=== PATIENT | female | born 1985 ===

== ENCOUNTER 2024-08-21 12:02 | Emergency (ER) | payer OTHER, SELFPAY ==
[2024-08-21 12:51] VITALS: BP 111/64; PULSE 79; RESP 18; TEMP 36.7; O2SAT 100
--- NOTE | 2024-08-21 13:01 | ED_ITS ---
HPI - URI/Sore Throat General Chief Complaint: Upper Respiratory Infection Stated Complaint: sore throat / tight chest / headache Time Seen by Provider: 08/21/24 13:01 Source: patient, RN notes reviewed and old records reviewed Mode of arrival: ambulatory Limitations: no limitations History of Present Illness HPI Narrative: 39-year-old female presents to the [facility] with symptoms that started last night, exposure to flu a. Patient reports his sore throat, headache, body aches, cough, chest tightness with coughing. Denies fevers. Treatments prior to arrival: cold medicine Related Data Home Medications ?Medication ?Instructions ?Recorded ?Confirmed ?Last Taken ?Type verapamil 80 mg tablet mg 08/21/24 Unknown History Allergies Allergy/AdvReac Type Severity Reaction Status Date / Time No Known Allergies Allergy Verified 08/21/24 12:40 Review of Systems Review of Systems: All systems reviewed & are unremarkable except as noted in HPI and below Constitutional: Constitutional: Reports as per HPI ENT: Reports as per HPI Cardiovascular: Cardiovascular: Reports no additional cardiovascular complaints, Denies chest pain and Denies dyspnea Respiratory: Respiratory: Reports as per HPI, Denies chest congestion, Reports cough and Denies dyspnea Musculoskeletal: Musculoskeletal: Reports no additional musculoskeletal complaints Integumentary/Breasts: Skin/Breast: Reports system reviewed and no additional complaints, except as docu PMFSH Comments At the time of my signature, I reviewed and agree with the nursing past medical, surgical, social, and family history. There is no relevant family history pertinent to the patient complaint. Exam Const: General: cooperative, no acute distress, well developed, alert, tired appearing, uncomfortable and well nourished Nutritional Appearance: well nourished Orientation/consciousness: patient oriented x3 Limitations: no limitations HENMT: Head: normal to inspection Ears: hearing grossly normal bilaterally, external ears normal, TM's normal bilaterally, EAC's normal, mastoids normal and no periauricular adenopathy Mouth: Yes Normal oral and palatal mucosa present, Yes lip normal, Yes tongue normal and Yes moist mucous membranes Throat: posterior oropharynx normal, uvula midline and no uvular edema Eyes: General: appearance normal, both eyes and all related structures Alignment and Position: alignment normal Neck: Neck: normal visual inspection, full ROM, no lymphadenopathy and no meningeal signs Chest: Chest palpation & inspection: normal inspection of the chest Resp: Effort & Inspection: normal respiratory effort and able to speak in complete sentences Auscultation: clear to auscultation bilaterally, no crackles, no rales, no rhonchi and no wheezes Cardio: Rate: regular rate Skin: General skin exam: normal color and no rashes or lesions noted Neuro: General: patient oriented x3, gait normal, moves all extremities and no meningeal signs Cognition (Neuro): normal cognition Speech: normal speech Gait exam (Neuro): Normal gait present Extrem: General: normal to inspection, full ROM, capillary refill normal and normal gait Psych: Appearance: grossly normal and well kempt Mental Status: mental status grossly normal Speech and movement: Normal speech and movement present and Clear speech present Affect: normal affect Attitude: cooperative Course Course Level of Care: Express Care Visit Vital Signs Vital signs: Vital Signs Temperature 98.0 F 08/21/24 12:51 Pulse Rate 79 08/21/24 12:51 Respiratory Rate 18 08/21/24 12:51 Blood Pressure 111/64 08/21/24 12:51 Pulse Oximetry 100 08/21/24 12:51 Oxygen Delivery Room Air 08/21/24 12:51 Temperature 98.0 F 08/21/24 12:51 Pulse Rate 79 08/21/24 12:51 Respiratory Rate 18 08/21/24 12:51 Blood Pressure 111/64 08/21/24 12:51 Pulse Oximetry 100 08/21/24 12:51 Oxygen Delivery Room Air 08/21/24 12:51 Reviewed MDM - URI/Sore Throat MDM Narrative Medical decision making narrative: Patient sitting in exam room. Nontoxic, vitals stable. Patient presents with less than 24 hours of URI symptoms. Flu, COVID, strep are negative in clinic. Due to flu a exposure as well as surge of a community flu influenza a. As well as patient's exam is most consistent with influenza A. Testing may have been too soon. Patient is appropriate for outpatient treatment and follow-up Discharge instructions reviewed with patient, as well as provided in writing per nursing staff. The instructions also include specific and strict return/GO TO THE ER as well as f/u information. All questions have been answered, and the patient deny any further questions with discharge and discharge plan. Some parts of this dictation were generated by voice recognition software and may contain typographical and/or grammatical inaccuracies. Differential Diagnosis Differential diagnosis: Likely upper respiratory infection, sinusitis, viral infection and influenza Lab Data Labs: Lab Results 08/21/24 08/21/24 Range/Units 13:04 13:17 POC Influenza A Ag Negative (Negative) POC Influenza B Ag Negative (Negative) POC SARS CoV-2 Ag Negative (Negative) POC Grp A Strep Screen Negative (Negative) Reviewed Critical Care Time Critical Care Time Critical Care Time: No Discharge Plan Discharge Clinical Impression: Influenza-like illness, Exposure to influenza Patient Disposition: Home, Self-Care Condition: Stable Instructions: Antibiotic Form, Influenza (ED) Additional Instructions: Patient Your rapid strep swab was negative today at [facility]. A throat culture will be sent to the laboratory for further testing. If the test is positive, you will receive a phone call within 48 hours and an appropriate antibiotic will be initiated at that time. Your rapid COVID test were negative Your rapid flu test was negative Your symptoms are likely due to a viral illness, which is not treated with antibiotics. Typically viral infections last 7-10 days, can linger for couple of weeks. It is very important to treat your symptoms. Drink plenty of water, Gatorade, Pedialyte, ice pops or Jell-O. -Alternate Tylenol and Motrin per package directions for fever or pain. You can alternate every 4 hours -Antihistamine medication such as Zyrtec/Claritin/Alisson during the day can help improve symptoms. -doing daily nasal irrigations can help relieve pressure your sinuses. Things like a Neti pot -Use Flonase twice a day for 5 days then daily to help reduce the inflammation and dry up your sinuses. -You can also use Mucinex. Be sure to drink plenty of water with this medication at least 8 ounces with every dose and it is important to drink 8 to 10 glasses of water per day. Water is a natural decongestant -Eat and drink things that are easy to swallow, like tea or soup, or popsicles. -Oral rinses such as: Salt water gargles and/or may use topical anesthetic (eg. Chloraseptic spray) or lozenges to relieve dryness or throat pain). -Frequent hand washing or hand communications billing analyst is one of the best ways to prevent spread of infection. -Using a vaporizer or humidifier at night will also help thin secretions and help with coughing up phlegm. -Follow up with primary care provider in 7-10 days if condition is not improving - For new or worsening symptoms go directly to the nearest ER Patient Language: Citizen Of [place] Prescriptions: No Action verapamil 80 mg tablet Follow-up/Referrals: Mallorie,JENNIFER Clark [Primary Care Provider] - 2 Weeks ([facility] follow-up) Stand Alone Forms: Work/School Release IP Time of Disposition: 13:18
[2024-08-21 13:06] LABS: EDCOVIDSCREEN Negative (Negative); EDINFLUASCREEN Negative (Negative); EDINFLUBSCREEN Negative (Negative)
--- OUTSIDE RECORDS SUMMARY | 2024-08-21 13:09 | XMS_ITS | Patient Health Summary ---
Author Organization [facility] Address [address] [place] [address] Care Team Prov[address] Care Ct Technician Name Role Phone Alfonso Angeles MD Primary Care Provider [phone] Note from [facility],non-owned Affiliates and Associated Physician Practices is amultiple site organization consisting of ambulatory clinics and hospital sitesin [place], [place], [place] and [place]. This disclosure is being madepursuant to the Care Everywhere program and may not contain all information available regarding this patient. Last updated 18.[facility] Allergies * Gluten Meal(Anaphylaxis) -High Criticality Medications * Be aware that medications may not be up to date on this document. Alwaysverify current medications with the patient. * albuterol HFA (PROVENTIL;VENTOLIN;PROAIR) 108 (90 Base) MCG/ACT inhaler (Started 02/09/2021) Inhale 2 (two) puffs by mouth every 4 hours as needed for Wheezing 5 refills by 02/09/2022 * fluticasone propionate (FLONASE) 50 MCG/ACT nasal spray(Started 02/09/2021) [place] 2 (two) sprays into each nostril once daily 5 refills by 02/09/2022 * olopatadine (PATANOL) 0.1 % ophthalmic solution(Started 02/09/2021) Instill 1 (one) drop into both eyes 2 times daily 5 refills by 02/09/2022 * cetirizine (ZYRTEC) 10 MG tablet(Started 02/09/2021) Take 1 (one) tablet by mouth once daily 5 refills by 02/09/2022 Active Problems Problem Noted Date Diagnosed Date Migraines 02/09/2021 SVT (supraventricular tachycardia) 02/09/2021 Social History Tobacco Use Types Packs/Day Years Used Date Smoking Tobacco: Never Assessed Sex and Gender Information Value Date Recorded Sex Assigned at Not on file Gender Identity Not on file Sexual Orientation Not on file Care Teams Ct Technician Relationship Specialty [place] [address] [place] [address] PCP - General 12/26/20
--- OUTSIDE RECORDS SUMMARY | 2024-08-21 13:09 | XMS_ITS | Clinical Summary ---
Author Organization [facility] Address [address] [place] [address] Care Team Providers Care Taper And Floater Name Role Phone Sheyla Durbin MD Unavailable Vanita Nobles PA-C Primary Care Provider [phone] Allergies No known active allergies Medications verapamil (CALAN) 80 MG tablet Take 1 tablet (80 mg total) by mouth 2 (two) times daily. 60 tablet 6 08/08/19 25 Active azithromycin (ZITHROMAX) 250 MG tabletIndicatio ns:Acute non-recurrent sinusitis, unspecified location,Acute cough TAKE 2 TABS PO DAY 1 THEN 1 TABLET DAILY 6 tablet 04/23/20 24 025 Discontinued albuterol sulfate HFA 108 (90 Base) MCG/ACT inhalerIndicati ons:Shortness of breath Inhale 2 puffs into the lungs every 4 (four) hours as needed. 18 g 3 04/23/20 24 025 Discontinued verapamil (CALAN) 80 MG tablet Take 1 tablet (80 mg total) by mouth 2 (two) times daily. 30 tablet 06/27/20 24 025 Discontinued verapamil (CALAN) 80 MG tablet Take 1 tablet (80 mg total) by mouth 2 (two) times daily. 15 tablet 07/24/19 25 025 Discontinued verapamil (CALAN) 80 MG tablet Take 1 tablet (80 mg total) by mouth 2 (two) times daily. 15 tablet 07/26/19 25 025 Discontinued(Re order) Active Problems Problem Noted Date Diagnosed Date SVT (supraventricular tachycardia) ([facility] Migraines Encounters Date Type Department Care Team Description 08/08/2024 1:00 PM DENTAL LABORATORY TECHNICIAN APPRENTICE [facility] [address] [place] [address] Sheyla Durbin MD Follow Up (SVT) 08/08/2024 MyChart Message Enc [facility] Medical [facility] Family & Internal Medicine [address] [address] Vanita Nobles PA-C Dec test results from [employer] 08/08/2024 Travel 08/07/2024 Orders Only [facility] Family & Internal [address] [address] Vanita Nobles PA-C 06/22/2024 Scan [facility] HE[facility] INFO SRVCS Scanned, Doc Med Group from Last 3 Months Immunizations Name Administration Dates Next Due Dtap (Generic) 1987 Dtp 03/05/1991,01/03/1989,1987 ,1987 Hepatitis B 12/11/1996,07/17/1996,06/12/1996 MMR 01/07/1992,09/06/1988 Opv 03/05/1991,09/07/1988,1987 ,1987,1987 Td 04/11/2001 Family History Medical History Relation Comments Heart Attack Father Melanoma Father Stent Cardiac Father Stroke Father Heart Attack Maternal Grandfather Alzheimers Maternal Grandmother Heart Attack Paternal Grandfather Relation Status Comments Brother Alive Father Alive Maternal Grandfather (Age 70) Maternal Grandmother Alive Mother Alive Other Alive Paternal Grandfather (Age 60) Paternal Grandmother (Age 80) Sister 1 Alive Sister 2 Alive Social History Tobacco Use Types Packs/Day Years Used Date Smoking Tobacco: Former Cigarettes Q uit: 2012 Smokeless Tobacco: Never Tobacco Cessation:Counseling Given: Yes Alcohol Use Standard Drinks/Week Comments No 0 (1 standard drink = 0.6 oz pur e alcohol) PHQ-2 Answer Date Recorded Patient Health Questionnaire-2 Score 0 12/28/2023 Comments No Sex and Gender Information Value Date Recorded Sex Assigned at Not on file Legal Sex Female 6:34 PM CDT Gender Identity Female 12/16/2021 7:52 AM CDT Sexual Orientation Not on file Last Filed Vital Signs Vital Sign Reading Time Taken Comments Blood Pressure 112/60 08/08/2024 1:14 PM DENTAL LABORATORY TECHNICIAN APPRENTICE Pulse 76 08/08/2024 1:14 PM DENTAL LABORATORY TECHNICIAN APPRENTICE Temperature 36.8 C (98.2 F) 04/23/2024 2:56 PM CDT Respiratory Rate 19 04/23/2024 2:56 PM CDT Oxygen Saturation 99% 04/23/2024 2:56 PM CDT Inhaled Oxygen Concentration - - Weight 82.1 kg (181 lb) 08/08/2024 1:14 PM DENTAL LABORATORY TECHNICIAN APPRENTICE Height 177.8 cm (5' 10 ) 08/08/2024 1:14 PM DENTAL LABORATORY TECHNICIAN APPRENTICE Body Mass Index 25.97 08/08/2024 1:14 PM DENTAL LABORATORY TECHNICIAN APPRENTICE Plan of Treatment Upcoming Encounters Date Type Department Care Team (Late st Contact Info) Description 08/14/2025 1:45 PM DENTAL LABORATORY TECHNICIAN APPRENTICE [facility] [address] Lily Faith PA-C [address] [address] Health Maintenance Due Date Last Done Comments DTaP, Tdap and Td Vaccines (3 - Tdap) 04/12/2001 04/11/2001, 03/05/1991, 01/03/1989, Additional history exists Hepatitis C 2005 Cervical Cancer Screening Pap with HPV Testing (Age 30 to 64) Every 5 Years 2017 Cervical Cancer Screening Pap Smear (Age 30 to 64) Every 3 Years 06/30/2020 06/30/2017, 08/22/2014, 08/30/2012, Additional history exists Cervical Cancer Screening with HPV 06/30/2020 Annual Physical 12/17/2022 12/17/2021, 11/28/2020 COVID-19 Vaccine ( season) 2024 Influenza Adult (#1) 2024 PHQ-2 (Physician Elim Ira) 07/11/2024 12/28/2023 Hepatitis B Vaccines Completed 12/11/1996, 07/17/1996, 06/12/1996 HPV Vaccines Aged Out No longer eligi ble based on patient's age to complete this topic Meningococcal B Vaccine Aged Out No l onger eligible based on patient's age to complete this topic Meningococcal Vaccine Aged Out No geronimo catracho eligible based on patient's age to complete this topic Pneumococcal Vaccine: Pediatrics (0 to 5 Years) and At-Risk Patients (6 to 64 Years) Aged Out No longer eligible based on patient's age to complete this topic RSV Immunizations Under 20 Months Aged Out No longer eligible based on patient's age to complete this topic Procedures Procedure Name Priority Date/Time Associated Diagnosis Comments ELECTROCARDIOGRAM (NON MIDMARK ACQUIRED) Routine 08/08/2024 1:12 PM DENTAL LABORATORY TECHNICIAN APPRENTICE SVT (supraventricular tachycardia) ([facility] OUTSIDE CYTOPATH CERV/VAG INTERPRET (PAP) (SCAN ORDER) 06/30/2017 from Last 3 Months or Most Recently Relevant to Health Maintenance Results * ELECTROCARDIOGRAM (08/08/2024 1:12 PM DENTAL LABORATORY TECHNICIAN APPRENTICE) 08/08/2024 1:12 PM DENTAL LABORATORY TECHNICIAN APPRENTICE Narrative JADYN KEE - 08/10/2024 12:58 AM DENTAL LABORATORY TECHNICIAN APPRENTICE Jadyn Kee [facility] Test Date: 2024-08-08 Pat Name: TERRY LUZ Department: 108 Room: Gender: Female Phd Internship: : 1985 Requested By: SHEYLA DURBIN Order Number: [id number] Reading MD: Sheyla Durbin Measurements Intervals [place] Rate: 78 P: 79 MS: 169 QRS: 85 QRSD: 90 T: 80 QT: 357 QTc: 407 Interpretive Statements SINUS RHYTHM Compared to ECG dated 03/09/23, findings are similar. AL LABORATORY TECHNICIAN APPRENTICE Procedure Note Sheyla Durbin MD - 08/10/2024 [facility]: 2024-08-08 Pat Name: TERRY ESCOBAR Department: 108 Room: Gender: Female Phd Internship: : 1985 Requested By: SHEYLA DURBIN Order Number: [id number] Reading MD: Sheyla Durbin Measurements Intervals [place] Rate: 78 P: 79 MS: 169 QRS: 85 QRSD: 90 T: 80 QT: 357 QTc: 407 Interpretive Statements SINUS RHYTHM Compared to ECG dated 03/09/23, findings are similar. AL LABORATORY TECHNICIAN APPRENTICE us Sheyla Durbin MD PROCEDURES-ORDERABLE NO CHARGE F inal Result JADYN CARDIOVASCULAR * PAP SMEAR (06/30/2017) 06/30/2017 Narrative 06/30/2017 Ordered by an unspecified provider. us Documents Scanned SCANNING Final Result from Last 3 Months or Most Recently Relevant to Health Maintenance Insurance Advance Directives * Full Code (Latest Code Status on File) Date Activated Date Inactivated Comments 05/24/2017 3:48 PM 05/24/2017 10:34 PM Care Teams Taper And Floater Relationship Specialty Start Date End Date Vanita Nobles PA-C [address] [place] [address] PCP - General PHYSICIAN CHILD CAREGIVER 01/17/23 Sheyla Durbin MD [facility] [address] [place] [address] [employer] CLINICAL CARDIAC ELECTROPHYSIOLOGY 04/12/17
--- OUTSIDE RECORDS SUMMARY | 2024-08-21 13:09 | XMS_ITS | Encounter Summary ---
Author Organization [facility] Address [address] [place] [id number] Care Team Providers Care Newspaper Delivery Driver Name Role Phone Zita Durbin MD Unavailable Vanita Nobles PA-C Primary Care Provider [phone] Encounter Details Date Type Department Care Team (Late Contact Info) Description 08/08/2024 [place] [facility] Message Enc [facility] Family & Internal Medicine [facility] [address] [place] [address] Vanita Nobles PA-C [address] [address] Dec test results from [employer] Social History Tobacco Use Types Packs/Day Years Used Date Smoking Tobacco: Former Cigarettes Q uit: 2011 Smokeless Tobacco: Never Alcohol Use Standard Drinks/Week Comments No 0 (1 standard drink = 0.6 oz pur e alcohol) PHQ-2 Answer Date Recorded Patient Health Questionnaire-2 Score 0 12/28/2023 Comments No Sex and Gender Information Value Date Recorded Sex Assigned at Not on file Legal Sex Female 6:34 PM CDT Gender Identity Female 12/16/2021 7:52 AM CDT Sexual Orientation Not on file documented as of this encounter Plan of Treatment Upcoming Encounters Date Type Department Care Team (Late Contact Info) Description 08/14/2025 1:45 PM PATIENT TRANSPORTER Office Visit [facility] [address] Lily Faith PA-C Three [address] [address] documented as of this encounter Visit Diagnoses Not on filedocumented in this encounter Additional Health Concerns Assessment Noted Time PHQ-9 Depression Total Score: 1 12/28/19 24 4:05 PM CDT documented as of this encounter Care Teams Newspaper Delivery Driver Relationship Specialty Start Date End Date Vanita Nobles PA-C [address] [facility] [address] [place] [address] PCP - General PHYSICIAN ATTORNEY LAW CLERK 01/17/23 Zita Durbin MD Three [facility]. [address] [address] [employer] Ware[employer] Manager CLINICAL CARDIAC ELECTROPHYSIOLOGY 04/12/17 documented as of this encounter
--- OUTSIDE RECORDS SUMMARY | 2024-08-21 13:09 | XMS_ITS | Referral Summary ---
Author Organization [facility] Address [address] [place] [address] Care Team Providers Care Enterostomal Therapy Nurse Name Role Phone Alfonso Angeles MD Primary Care Provider Source Comments [facility],non-owned Affiliates and Associated Physician Practices is amultiple site organization consisting of ambulatory clinics and hospital sitesin [place], [place], [place] and [place]. This disclosure is being madepursuant to the Care Everywhere program and may not contain all information available regarding this patient. Last updated 18.[facility] Allergies Active Allergy Reactions Criticality Noted Date Comments Gluten Meal Anaphylaxis High 09/19/2019 Medications * Be aware that medications may not be up to date on this document. Alwaysverify current medications with the patient. Medication Sig Dispensed Refills Start Date End Date Status albuterol HFA (PROVENTIL;VENTOLIN;AL OAIR) 108 (90 Base) MCG/ACT inhalerIndications:Mil d intermittent reactive airway disease without complication (HCC) Inhale 2 (two) puffs by mouth every 4 hours as needed for Wheezing 18 g 5 02/09/2021 Active fluticasone propionate (FLONASE) 50 MCG/ACT nasal sprayIndications:Seaso nal allergic rhinitis due to other allergic trigger Faith 2 (two) sprays into each nostril once daily 16 g 5 02/09/2021 Active olopatadine (PATANOL) 0.1 % ophthalmic solutionIndications:Al lergic conjunctivitis of both eyes Instill 1 (one) drop into both eyes 2 times daily 15 mL 5 02/09/2021 Active cetirizine (ZYRTEC) 10 MG tabletIndications:Seas onal allergic rhinitis due to other allergic trigger Take 1 (one) tablet by mouth once daily 30 tablet 5 02/09/2021 Active Active Problems Problem Noted Date Diagnosed Date Migraines 02/09/2021 SVT (supraventricular tachycardia) 02/09/2021 Social History Tobacco Use Types Packs/Day Years Used Date Smoking Tobacco: Never Assessed Sex and Gender Information Value Date Recorded Sex Assigned at Not on file Gender Identity Not on file Sexual Orientation Not on file Plan of Treatment Not on file Care Teams Enterostomal Therapy Nurse Relationship Specialty [place] [address] [place] [address] PCP - General 12/26/20
--- OUTSIDE RECORDS SUMMARY | 2024-08-21 13:09 | XMS_ITS | Clinical Summary ---
Author Organization [facility] Address [address] [place] [address] Care Team Providers Care Neonatal Specialist Name Role Phone Alfonso Angeles MD Primary Care Provider Source Comments [facility],non-owned Affiliates and Associated Physician Practices is amultiple site organization consisting of ambulatory clinics and hospital sitesin [place], [place], [place] and [place]. This disclosure is being madepursuant to the Care Everywhere program and may not contain all information available regarding this patient. Last updated 18.[facility] Allergies Active Allergy Reactions Criticality Noted Date Comments Gluten Meal Anaphylaxis High 09/19/2019 Medications * Be aware that medications may not be up to date on this document. Alwaysverify current medications with the patient. Medication Sig Dispensed Refills Start Date End Date Status albuterol HFA (PROVENTIL;VENTOLIN;TX OAIR) 108 (90 Base) MCG/ACT inhalerIndications:Mil d intermittent reactive airway disease without complication (HCC) Inhale 2 (two) puffs by mouth every 4 hours as needed for Wheezing 18 g 5 02/09/2021 Active fluticasone propionate (FLONASE) 50 MCG/ACT nasal sprayIndications:Seaso nal allergic rhinitis due to other allergic trigger [place] 2 (two) sprays into each nostril once [...] Orientation Not on file Plan of Treatment Health Maintenance Due Date Last Done Comments HIV SCREENING 2002 HEPATITIS C SCREENING 02/03/2005 DTAP/TDAP/TD VACCINES (1 - Tdap) 2006 HEPATITIS B VACCINE (1 of 3 - 19+ 3-dose series) 2006 PAP SMEAR 06/30/2020 06/30/2017 COVID-19 VACCINE ( - 2023-2 5 season) 2024 INFLUENZA VACCINE (#1) 2024 DEPRESSION SCREENING 07/11/2024 ZOSTER VACCINE (1 of 2) 2037 HIB VACCINE Aged Out No longer eligi ble based on patient's age to complete this topic HPV VACCINE Aged Out No longer eligi ble based on patient's age to complete this topic MENINGOCOCCAL (Group B) VACCINE Aged Out No longer eligible based on patient's age to complete this topic MENINGOCOCCAL VACCINE Aged Out No geronimo catracho eligible based on patient's age to complete this topic PNEUMOCOCCAL VACCINE Aged Out No long er eligible based on patient's age to complete this topic Care Teams Neonatal Specialist Relationship Specialty [place] [address] [place] [address] [facility] - General 12/26/20
--- OUTSIDE RECORDS SUMMARY | 2024-08-21 13:10 | XMS_ITS | Data Portability ---
Author Organization [facility] [place] , [facility] Address [address] [place] [address] Assessment No assessment recorded. Plan of Treatment Reminders Order Date Submit Date Provider Last Modified By Organization Details Last Modified Time Details Appointments None recorded. Lab unlisted lab - Pap reflex hold 2022 023 [place] [address] [address], [address] [place], [address], 3 11:50:40 pap, LB 2022 023 [employer] [facility], [address] [place], [address], 21:30:27 HPV E6+E7 mRNA, qualitative PCR, cervix 2022 023 [place] [address], [address] [place], [address], 3 09:12:38 Referral None recorded. Procedures None recorded. Surgeries None recorded. Imaging None recorded. Medication Orders None recorded. Patient TargetsNo targets recorded. Patient InstructionsNo instructions recorded. Reason for Referral None Reported. Results Created Date Observation Date Name Description Value Unit Range Abnormal Flag Note LastModifiedBy Organization Detail LastModifiedTime 03/18/2003/22/2023 THINP REP TIS PAP clinical information: normal None given Not Available [facility] [address] [place], [address], 03/22/2023 21:30:27 03/18/20 23 03/22/2023 THINP REP TIS PAP LMP: normal NONE GIVEN Not Available [address] [place], [address], 03/22/2023 21:30:27 03/18/20 23 03/22/2023 THINP REP TIS PAP prev. Pap: normal NONE GIVEN Not Available [address] [place], [address], 03/22/2023 21:30:27 03/18/20 23 03/22/2023 THINP REP TIS PAP prev. BX: normal NONE GIVEN Not Available [address], [address], 03/22/2023 21:30:27 03/18/20 23 03/22/2023 THINP REP TIS PAP source: normal Cervi x Not Available [address], [address], 03/22/2023 21:30:27 03/18/20 23 03/22/2023 THINP REP TIS PAP statement of adequacy: normal Satis facto ry for evalu ation . Endoc ervic al/tr ansfo rmati on zone compo nent absen t. Age and/o r menst rual statu s not provi ded Not Available [address], [address], 03/22/2023 21:30:27 03/18/20 23 03/22/2023 THINP REP TIS PAP interpretati on/result: normal Cytol ogy Resul ts: Negat michael for intra epith elial lesio n or malig sera . Not Available [address], [address], 03/22/2023 21:30:27 03/18/20 23 03/22/2023 THINP REP TIS PAP comment: normal This Pap test has been evalu ated with compu ter jessica eunice techn ology . Not Available [address], [address], 03/22/2023 21:30:27 03/18/20 23 03/22/2023 THINP REP TIS PAP cytotechnolo gist: normal BES, CT( CP) CT scree greg locat ion: [facility] [address] [place] [place] [address] Not Available [facility] [address], [place], [address], 03/22/2023 21:30:27 03/18/20 23 03/22/2023 THINP REP TIS PAP comment EXPLA NATOR Y NOTE: The Pap is a scree greg test for cervi mary cance r. It is not a diagn ostic test and is subje ct to false negat michael and false posit michael resul ts. It is most relia ble when a satis facto ry sampl e, regul chema obtai lupillo, is submi tted with relev ant clini mary findi ngs and histo ry, and when the Pap resul t is evalu ated along with histo piter and curre nt clini mary infor matio n. Not Available [facility] [address], [place], [address], 03/22/2023 21:30:27 03/18/20 23 03/22/2023 HPV HIGH RISK HPV high risk Negati ve negati ve normal The HPV High Risk assay is inten ded for use as co-te sting with cytol ogy and not as a subst itute for regul ar cervi mary cytol ogy scree greg. This assay is not inten ded for use as a scree greg devic e for women under age 30 with shalini l cervi mary cytol ogy. Not Available [address], [address], 03/23/2023 09:12:37 Result Notes None recorded. Procedures Surgical History Date Name Laterality Status Provider Name and Address Organization Details Recorded Time 3 Date of Last Pap [facility]ear [facility] 03/18/2023 17:14:46 2 ligation of fallopian tube completed Martha Montes [facility] 03/18/2023 16:55:53 Imaging Results None recorded. Procedure Notes None recorded. Medical Equipment None Reported. Allergies No known drug allergies Medications Name Sig Start Date Stop Date Status Note LastModified by Organization Details LastModified Time ofloxacin 0.3 % ear drops INSTILL 5 DROPS IN BOTH EARS DAILY FOR 10 DAYS 03/18 completed Not Available Not Available Not Available amoxicillin 875 mg-potassium clavulanate 125 mg tablet TAKE 1 TABLET BY MOUTH TWICE DAILY 03/18 completed Not Available Not Available Not Available Vitals Date Recorded Body weight Body temperature Body mass index (BMI) Body height Systolic blood pressure Diastolic blood pressure Provider Name and Address Organization Details Last Updated DateTime 3 59856.4 7 g 97.2 [degF] 25.7 kg/m2 177.8 cm 122 mm[Hg] 80 mm[Hg] Martha Montes [facility] 16:59:08 Social History Question Answer Notes LastModified by Organizat ion Details LastModified Time Tobacco Smoking Status Former Smoker Martha irvin [facility] 03/18/2023 16:55:29 What Is Your Level Of Alcohol Consumption? None [email or web address] Information not available 03/18/2023 Are You Blind Or Do You Have Difficulty Seeing? No [email or web address] Information not available 03/18/2023 Are You Currently Employed? Yes [email or web address] Information not available 03/18/2023 Are You Deaf Or Do You Have Serious Difficulty Hearing? No [email or web address] Information not available 03/18/2023 What Type Of Diet Are You Following? REGULAR [email or web address] Information not available 03/18/2023 What Is The Highest Grade Or Level Of School You Have Completed Or The Highest Degree You Have Received? 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 11-15yearssi ncelastcigar ette [email or web address] Information not available 03/18/2023 How Many Children Do You Have? 3 [email or web address] Information not available 03/18/2023 What Is Your Relationship Status? [email or web address] Information not available 03/18/2023 Are You Sexually Active? Yes Information not available 03/18/2023 At What Age Did You Start Smoking Tobacco? 14 [email or web address] Information not available 03/18/2023 Do You Use Any Illicit Or Recreational Drugs? No [email or web address] Information not available 03/18/2023 How Many Years Have You Smoked Tobacco? 10 [email or web address] Information not available 03/18/2023 Do You Or Have You Ever Used Any Other Forms Of Tobacco Or Nicotine? No Information not available 03/18/2023 Sex: Unknown Functional Status Question Answer Note LastModified by Organizat ion Details LastModified Time What is your exercise level? Occasional [email or web address] Information not available 03/18/2023 Mental Status None recorded. Family History Relationship Description Onset Age of this Age Resolved Age Notes LastModified by Organization Details LastModified Time Father No current problems or disability [email or web address] Not available 03/18 16:52:24 Mother No current problems or disability [email or web address] Not available 03/18 16:52:24 Maternal Grandmother Malignant tumor of cervix [email or web address] Not available 2022 16:53:59 Medical History Condition Response Headaches/migraines Y Seasonal allergies Y History of Abnormal Pap Y Chicken Pox Y Gynecological History Statement/Question Response Flow Moderate Date of last HPV 03/18/2023 Date of LMP 02/04/2023 HPV Vaccine N Date of Last Pap Smear 03/18/2023 Duration of Flow (days) 5 Current Control Method Tubal Ligat ion Age at Menarche 12 Obstetrics History GPAL:G 3 P 2 1 0 3 Type Value Full Term 2 Premature 1 Living 3 Total 3 Past Encounters Encounter ID Performer Location Encounter Start Date Encounter Closed Date Diagnosis/Indication Diagnosis SNOMED-CT Code Diagnosis ICD10 Code Diagnosis Note [id number] Gin Anton CNM [facility] [address] [id number] 03/18/2023 16:43:10 03/22/2023 04:26:47 Gynecologic examination 68300955 Z01.419 Screening for malignant neoplasm of cervix 552327232 Z12.4 Depression screening 171 442336 Z13.31 Health Concerns Section Related Observation LastModified by Organization Detai ls LastModified Time None Recorded Concern Status LastModified by Organization Details LastModified Time None Recorded Advance Directives Directive None Recorded Payers Encounter Date Sequence Insurance Name Policy Number Policy Jenkins Covered Member ID Jenkins Member ID Guarantor Name 03/18/2023 1 [facility] [employer] Terry Escobar [id number] Terry Escobar Notes Date Note Type Note Provider Name and Address Organization Details Recorded Time 03/18/2023 text/html Annual GYNReport ed bypatient.Menstrua l cycle:Normal menses Urinary symptoms:No hematuria; No incontinence Vulva:No genital lesion Vagina:Normal vaginal discharge Breast:No breast pain; No breast lump; No nipple discharge Sexual complaints:No sexual complaints; No pain during intercourse; Normal libido Menopausal Symptoms:No menopausal symptoms; Normal vaginal lubrication Psychological symptoms:No depression; No anxiety; No PMDD Denies concerns. unsure of last pap smear. Hx of abnormal 10 years ago. BTL for contraception. Gin Anton CNM [address] [facility] [address], [place], [address], [facility] [place] 03/18/2023 17:24:43 OBGyn Episode No OBEpisode recorded.
[2024-08-21 13:19] LABS: EDSTREPNEGPOS1 Negative (Negative)
== END 2024-08-21 13:21 | disposition home or self-care (01) ==
PROVIDERS: Emergency Provider Nurse Practitioner; PCP Physician Assistant
DX: J11.1 Influenza due to unidentified influenza virus with other respiratory manifestations (principal); I10 Essential (primary) hypertension; Z86.16 Personal history of COVID-19
CPT/HCPCS: 87081; 87426; 87804; 87880; 99203; G0463